=== PATIENT | female | born 1960 | race Caucasian/White ===

== ENCOUNTER → 2016-10-11 | Outpatient (CLI) | payer BC | LOC: OD 09:47 | PROVIDERS: ATTEND Obstetrics & Gynecology | DX: I82.4Z2 Acute embolism and thrombosis of unspecified deep veins of left distal lower extremity (principal) | CPT/HCPCS: 36415; 85379 ==

== ENCOUNTER 2018-06-11 17:52 | Day surgery (SDC) | payer BC ==
[2018-06-11 17:36] LABS: HEMOGLOBIN 12.8 g/dL (12.0-15.5); MEAN CORPUSCULAR HEMOGLOBIN 30.9 pg (27.0-33.4); MEAN CORPUSCULAR HGB CONC 34.5 g/dL (32.0-36.0); MEAN CORPUSCULAR VOLUME 90 fl (80-97); PLATELET COUNT 228 10^3/uL (150-450); RED BLOOD COUNT 4.14 10^6/uL (3.72-5.28); RED CELL DISTRIBUTION WIDTH 14.1 % (11.5-14.0); WHITE BLOOD COUNT 15.2 10^3/uL (4.0-10.5)
--- NOTE | 2018-06-11 17:36 | PDOC H&P ---
History of Present Illness Admission Date/PCP: 06/11/18 16:30 TAMIKO AVERY MD Patient complains of: left axilla pain, swelling History of Present Illness: RAFAEL BOWERS is a 57 year old female with a 1 week history of pain, swelling, redness of the left axilla as per abscess which has become worse during the past 1-2 days. She presented with the above symptoms to the [facility] and she has been admitted to undergo I&D of the left axillary abscess tomorrow. Past Medical History Medical History: Other - HTN Cardiac Medical History: Reports: Hypertension Past Surgical History Past Surgical History: Reports: Appendectomy, Hysterectomy Social History Lives with: Family Smoking Status: Current Every Day Smoker Family History Family History: None Parental Family History Reviewed: No Children Family History Reviewed: No Sibling(s) Family History Reviewed.: No Medication/Allergy Home Medications: Albuterol Sulfate [Proair HFA] 1 - 2 puff IH Q4 PRN #1 inhaler 12/18/13 Atorvastatin Calcium [Lipitor 40 mg Tablet] 40 mg PO QHS 12/18/13 Chlorthalidone [Chlorthalidone 25 mg Tablet] 1 tab PO DAILY 12/18/13 Fenofibrate 160 mg PO DAILY 12/18/13 Hydrocodone/Acetaminophen [Hydrocodon-Acetaminoph 7.5-325] 1 each PO Q6 PRN 09/02 Losartan Potassium 100 mg PO QHS 12/18/13 Prednisone [Deltasone 20 mg Tablet] 3 tab PO DAILY 5 Days tablet 12/18/13 Allergies/Adverse Reactions: codeine [Codeine] Allergy (Verified 12/18/13 11:57) Physical Exam General appearance: PRESENT: mild distress Head exam: PRESENT: atraumatic Eye exam: PRESENT: EOMI Mouth exam: PRESENT: moist, neck supple Neck exam: PRESENT: full ROM Respiratory exam: PRESENT: clear to auscultation babatunde Cardiovascular exam: PRESENT: RRR GI/Abdominal exam: PRESENT: normal bowel sounds, soft Extremities exam: PRESENT: full ROM Musculoskeletal exam: PRESENT: full ROM Skin exam: PRESENT: erythema - left axilla with edema and marked enderness Assessment & Plan - Diagnosis (1) Axillary hidradenitis suppurativa Is this a current diagnosis for this admission?: Yes - Plan Summary Plan Summary: A/ Left axillary hydroadenitis suppurative Pain left axilla x 1 week P/ Admit regular diet IVF Cipro/Flagyl Consent for I&F left axillary abscess NPO after midnight pain control
[~2018-06-11 17:52] MED LIST: RINGERS SOLUTION,LACTATED 1,000 ML IV PRN
[2018-06-11] MEDS ORDERED: ENOXAPARIN SODIUM INJ 40 MG/0.4 ML DISP.SYRIN SUBCUT ONE (18:15)
[2018-06-11] MEDS: METRONIDAZOLE 500 MG/NS RTU 500 MG/100 ML RTUPB IV SCH (18:37)
[2018-06-11] MEDS: MORPHINE SULFATE 10 MG/ML INJ IV PRN ×3 (18:37→22:59)
[2018-06-11] MEDS: NORMAL SALINE 1000 ML 1,000 ML IV PRN (18:41)
[2018-06-11] MEDS: CIPROFLOXACIN 400 MG/D5W RTU 400 MG/200 ML RTUPB IV SCH (21:06)
[2018-06-11] MEDS: LOSARTAN POTASSIUM 50 MG TABLET PO SCH (21:06)
[2018-06-11] MEDS: FAMOTIDINE INJ/PF 20 MG/2 ML SDV IV SCH (21:51)
[2018-06-11] MEDS ORDERED: CIPROFLOXACIN 400 MG/D5W RTU 400 MG/200 ML RTUPB IV SCH (22:00)
[2018-06-12] MEDS: METRONIDAZOLE 500 MG/NS RTU 500 MG/100 ML RTUPB IV SCH ×3 (01:06→17:42)
[2018-06-12] MEDS: MORPHINE SULFATE 10 MG/ML INJ IV PRN ×8 (01:06→22:41)
[2018-06-12] MEDS: CIPROFLOXACIN 400 MG/D5W RTU 400 MG/200 ML RTUPB IV SCH ×2 (05:16→18:55)
[2018-06-12] MEDS: NORMAL SALINE 1000 ML 1,000 ML IV PRN ×2 (07:49→17:42)
[2018-06-12] MEDS ORDERED: SUCCINYLCHOLINE CHLORIDE INJ 200 MG/10 ML VIAL ONE (09:09)
[2018-06-12] MEDS ORDERED: ALBUTEROL SULFATE HFA (90 MCG/PUFF) 8 GM MDI (1 MDI/ER DISP) IH PRN (10:23)
[2018-06-12] MEDS ORDERED: (PENDING PHARMACY ID) (Fenofibrate [Fenofibrate] 160 MG) PO SCH (10:30)
[2018-06-12] MEDS: FAMOTIDINE INJ/PF 20 MG/2 ML SDV IV SCH ×2 (10:41→21:12)
[2018-06-12] MEDS ORDERED: ALBUTEROL SULFATE HFA (90 MCG/PUFF) 200 PUFF/8.5 GM MDI IH PRN (11:16)
[2018-06-12] MEDS: ENOXAPARIN SODIUM INJ 40 MG/0.4 ML DISP.SYRIN SUBCUT SCH (12:21)
[2018-06-12] MEDS ORDERED: DEXAMETHASONE SOD PHOSPHATE INJ 4 MG/1 ML VIAL ONE (12:37)
[2018-06-12] MEDS ORDERED: FENTANYL CITRATE INJ/PF 100 MCG/2 ML AMPUL ONE (12:37)
[2018-06-12] MEDS ORDERED: ONDANSETRON HCL INJ/PF 4 MG/2 ML SDV ONE (12:37)
[2018-06-12] MEDS ORDERED: PROPOFOL INJ 200 MG/20 ML VIAL IV ONE (12:37)
[2018-06-12] MEDS ORDERED: MIDAZOLAM 2 MG/2 ML INJ ONE (12:37)
[2018-06-12] MEDS ORDERED: BUPIVACAINE HCL 0.5 % INJ/PF 30 ML SDV ONE (12:43)
[2018-06-12] MEDS ORDERED: LIDOCAINE 0.5% INJ-PF (5 MG/ML) 50 ML SDV ONE (12:43)
[2018-06-12] MEDS ORDERED: MEPERIDINE HCL/PF INJ 25 MG/1 ML DISP.SYRIN IV PRN (13:04)
[2018-06-12] MEDS ORDERED: PROMETHAZINE HCL INJ 25 MG/1 ML VIAL IV PRN ×2 (13:04)
[2018-06-12] MEDS ORDERED: DIPHENHYDRAMINE HCL 50 MG/ML VIAL IV PRN (13:04)
[2018-06-12] MEDS ORDERED: ONDANSETRON HCL INJ/PF 4 MG/2 ML SDV IV PRN (13:04)
[2018-06-12] MEDS ORDERED: FENTANYL CITRATE INJ/PF 100 MCG/2 ML AMPUL IV PRN ×3 (13:04)
[2018-06-12] MEDS ORDERED: OXYCODONE-ACETAMINOPHEN 5-325 MG TABLET PO PRN ×2 (13:04)
--- NOTE | 2018-06-12 13:51 | Operative Report ---
Nonrecallable Operative Report DATE OF SURGERY: 06/12/18 PREOPERATIVE DIAGNOSIS: Left axillary purulent hydroadenitis POSTOPERATIVE DIAGNOSIS: same OPERATION: I&D left axillary hydroadenitis SURGEON: СЕРГЕЙ PINEDA ANESTHESIA: GA - plus 60 mL 0.5% marcaine and 1% lidocaine TISSUE REMOVED OR ALTERED: n/a COMPLICATIONS: none ESTIMATED BLOOD LOSS: 20 mL INTRAOPERATIVE FINDINGS: large left axillary subcutaneous abscess cavity PROCEDURE: see dictation
--- NOTE | 2018-06-12 14:02 | OPERATIVE REPORT E ---
Operative Report NAME: RAFAEL BOWERS : 1960 AGE: 57Y DATE OF SURGERY: 06/12/2018 ROOM: 219 PREOPERATIVE DIAGNOSIS: LEFT AXILLA PURULENT HIDRADENITIS. POSTOPERATIVE DIAGNOSIS: LEFT AXILLA PURULENT HIDRADENITIS. OPERATION: Incision and drainage of left axillary hidradenitis abscess. SURGEON: СЕРГЕЙ PINEDA M.D. TOOL AND GAUGE INSPECTOR: None. ESTIMATED BLOOD LOSS: About 10 mL of blood. FLUIDS: 1000 URINE OUTPUT: Not monitored. DRAIN: 1/4 inch Kristina drain. COMPLICATION: None. ANESTHESIA: General plus 6 mL of 50:50 volume 0.5% Marcaine and 1% lidocaine without epinephrine. INDICATION/FINDINGS: This is a 57-year-old female who has a 1-week history of breast swelling, pain, erythema, of the left axilla. She saw her primary care physician about 5 days ago. She was started on Keflex without improvement. She presented to the clinic yesterday with above symptoms. Decision was made to admit the patient and take her surgery directly for drainage of the left axillary abscess. Procedure, risks, benefits, complications explained to the patient. She understood and decided to proceed. PROCEDURE: It was done in the operating room. Patient was placed in a supine position. General anesthesia induced by endotracheal intubation. The left upper extremity was elevated with exposure of the axilla. The area was prepped and draped in usual fashion. The planned incision was marked with a surgical marker along the lower hairline of the axilla in a curvilinear fashion. The incision was then continued with a Bovie through subcutaneous tissue and fat until the purulent cavity was entered. The pus was sent for aerobic and anaerobic culture and gram stain. The subcutaneous tissue and the fat was then opened to the entire length of the incision which was about 2.5 inches in length. A finger was inserted and large subcutaneous pocket was identified just below the inferior flap. This was debrided with the finger and a single large cavity was obtained. The area was then irrigated with normal saline until clear. In the inferior flap of the surgical incision, a catheter incision was made with Bovie and a 1/4-inch Kristina was sutured to the surgical incision and it exited through the catheter incision and hooked to itself and tied with a 2-0 silk suture. The area was irrigated with normal saline until clear. Local bleeders are cauterized. The wound was then packed with 3-inch Ahsan, soaked with bacitracin and zinc oxide antibiotic ointment. Sterile dressing is applied to the area with tape. The patient tolerated procedure well. He was extubated and transferred to recovery room in satisfactory condition. DICTATING PHYSICIAN: СЕРГЕЙ PINEDA M.D. [id number] PHY#: [id number] ID: [id number] JOB#: [id number] ACCT: [id number] cc:СЕРГЕЙ PINEDA M.D. > MTDD
[2018-06-12] MEDS ORDERED: NEOMY/BACITRAC ZN/POLY OINT 15 GM TP PRN (14:30)
[2018-06-12] MEDS: CHLORTHALIDONE 25 MG TABLET PO SCH (14:51)
[2018-06-12] MEDS ORDERED: ATORVASTATIN CALCIUM 40 MG TABLET PO SCH (22:00)
[2018-06-12] MEDS ORDERED: LOSARTAN POTASSIUM 50 MG TABLET PO SCH (22:00)
[2018-06-12] MEDS ORDERED: (PENDING PHARMACY ID) (Losartan Potassium [Losartan Potassium] 100 MG) PO SCH (22:00)
[2018-06-12] MEDS: LOSARTAN POTASSIUM 50 MG TABLET PO SCH (23:59)
[2018-06-13] MEDS: MORPHINE SULFATE 10 MG/ML INJ IV PRN ×5 (01:20→10:42)
[2018-06-13] MEDS: METRONIDAZOLE 500 MG/NS RTU 500 MG/100 ML RTUPB IV SCH ×2 (02:04→09:57)
[2018-06-13] MEDS: NORMAL SALINE 1000 ML 1,000 ML IV PRN ×2 (02:04→10:42)
[2018-06-13] MEDS: CIPROFLOXACIN 400 MG/D5W RTU 400 MG/200 ML RTUPB IV SCH (05:53)
[2018-06-13 06:31] LABS: HEMATOCRIT 32.2 % (36.0-47.0); HEMOGLOBIN 11.1 g/dL (12.0-15.5); MEAN CORPUSCULAR HEMOGLOBIN 31.1 pg (27.0-33.4); MEAN CORPUSCULAR HGB CONC 34.5 g/dL (32.0-36.0); MEAN CORPUSCULAR VOLUME 90 fl (80-97); PLATELET COUNT 248 10^3/uL (150-450); RED BLOOD COUNT 3.57 10^6/uL (3.72-5.28); RED CELL DISTRIBUTION WIDTH 13.9 % (11.5-14.0); WHITE BLOOD COUNT 13.8 10^3/uL (4.0-10.5)
[2018-06-13 06:56] LABS: ANION GAP 7 (5-19); BLOOD UREA NITROGEN 13 mg/dL (7-20); CALCIUM 8.6 mg/dL (8.4-10.2); CARBON DIOXIDE 23 mmol/L (22-30); CHLORIDE 109 mmol/L (98-107); GLUCOSE 148 mg/dL (75-110); POTASSIUM 4.3 mmol/L (3.6-5.0); SODIUM 139.1 mmol/L (137-145)
[2018-06-13] MEDS: ENOXAPARIN SODIUM INJ 40 MG/0.4 ML DISP.SYRIN SUBCUT SCH (09:57)
[2018-06-13] MEDS: FAMOTIDINE INJ/PF 20 MG/2 ML SDV IV SCH (09:57)
[2018-06-13] MEDS: CHLORTHALIDONE 25 MG TABLET PO SCH (09:58)
[2018-06-13] MEDS: FENOFIBRATE NANOCRYSTALLIZED 145 MG TABLET PO SCH ×2 (09:58→10:04)
[2018-06-13] MEDS ORDERED: HYDROCODONE/ACETAMINOPHEN 10-325 MG TABLET PO PRN (12:48)
[2018-06-13] MEDS ORDERED: KETOROLAC TROMETHAMINE INJ/PF 30 MG/1 ML SDV IV ONE (12:48)
[2018-06-13] MEDS ORDERED: HYDROCODONE/ACETAMINOPHEN 10-325 MG TABLET ONE (12:57)
[2018-06-13] MEDS ORDERED: KETOROLAC TROMETHAMINE INJ/PF 30 MG/1 ML SDV ONE (12:57)
--- NOTE | 2018-06-13 13:38 | PDOC DISCHARGE SUMMARY ---
General - Admit/Disc Date/PCP Admission Date/Primary Care Provider: 06/11/18 16:30 TAMIKO AVERY MD Discharge Date: 06/13/18 - Discharge Diagnosis (1) Abscess of left axilla Is this a current diagnosis for this admission?: Yes - Additional Information Resuscitation Status: Full Code Home Medications: Albuterol Sulfate [Proair HFA] 1 - 2 puff IH Q4 PRN #1 inhaler 12/18/13 Atorvastatin Calcium [Lipitor 40 mg Tablet] 40 mg PO QHS 12/18/13 Chlorthalidone [Chlorthalidone 25 mg Tablet] 1 tab PO DAILY 12/18/13 Hydrocodone/Acetaminophen [Hydrocodon-Acetaminoph 7.5-325] 1 each PO Q6 PRN 09/02 Losartan Potassium 100 mg PO QHS 12/18/13 Sertraline HCl [Zoloft] 25 mg PO QHS 06/13/18 History of Present Illness History of Present Illness: RAFAEL BOWERS is a 57 year old female with a left axillary abscess. She was admitted to the hospital for definitive surgical care. Hospital Course Hospital Course: The patient was taken to the operating room yesterday (06/12/18) for incision and drainage of her left axillary abscess. Patient was taken to the floor in stable condition. She did very well after surgery. On 06/13/2018 the patient was ambulating, tolerating a diet, her pain was controlled with oral pain medications, and she was afebrile. At this time it was felt that she had reached maximal hospital benefit and was fit for discharge. Physical Exam Vital Signs: Temp Pulse Resp BP Pulse Ox 98.3 F 70 16 120/62 98 06/13/18 11:40 06/13/18 11:40 06/13/18 11:40 06/13/18 11:40 06/13/18 11:40 Intake & Output 06/12/18 06/13/18 06/14/18 06:59 06:59 06:59 Intake Total 1600 4000 1200 Output Total 15 Balance 1600 3985 1200 Weight 61.7 kg 61.2 kg Results Laboratory Results: 06/13/18 06:14 06/13/18 06:14 06/13/18 06/13/18 06:14 06:14 WBC 13.8 H RBC 3.57 L Hgb 11.1 L Hct 32.2 L MCV 90 MCH 31.1 MCHC 34.5 RDW 13.9 Plt Count 248 Sodium 139.1 Potassium 4.3 Chloride 109 H Carbon Dioxide 23 Anion Gap 7 BUN 13 Creatinine 0.48 L Est GFR ( Amer) > 60 Est GFR (Non-Af Amer) > 60 Glucose 148 H Calcium 8.6 Qualifiers - * PATIENT BEING DISCHARGED WITH ANY OF THE FOLLOWING DIAGNOSIS: No Plan Discharge Plan: Discharge home. Diet as tolerated. Activity: nonstrenuous. Follow-up with me in 7-10 days. Damp dressing changes with packing twice daily. Okay to shower. Bactrim DS, 1 tab p.o. twice daily times 7 days. [place] 5/325 mg p.o. every 6 hours as needed pain. Time Spent: Less than 30 Minutes
[2018-06-13 14:05] VITALS: BP 123/67
== END 2018-06-13 14:45 | disposition home or self-care (01) ==
LOC: OROUT 17:52 → 2S 17:52 → EDSTATUS 06-12 15:15 → UNDODISIN 06-13 14:45 → OROUT 06-13 14:45
PROVIDERS: ATTEND Surgery
DX: L02.412 Cutaneous abscess of left axilla (principal); F17.210 Nicotine dependence, cigarettes, uncomplicated; I10 Essential (primary) hypertension; J44.9 Chronic obstructive pulmonary disease, unspecified; M19.90 Unspecified osteoarthritis, unspecified site; Z90.49 Acquired absence of other specified parts of digestive tract; Z90.710 Acquired absence of both cervix and uterus; Z88.5 Allergy status to narcotic agent; Z23 Encounter for immunization; Z79.51 Long term (current) use of inhaled steroids; Z79.899 Other long term (current) drug therapy; F41.9 Anxiety disorder, unspecified
CPT/HCPCS: 36415 ×2; 87070; 87205; 85027 ×2; 87075; 87077; 80048; 87186; 90686; 10060; G0008; A6266; J2250; J3490 ×3; J1100; J3010; J1885; J2270 ×3; J1650; J0330; J2405; J7030 ×3; J7120; J2704; J0744 ×3; S0028 ×3; 400; 90471